=== PATIENT | female | born 1990 | race Two or more races ===

== ENCOUNTER 2020-05-28 06:51 | Day surgery (SDC) | payer MEDICAID ==
[~2020-05-28] VITALS: Ht 162.6 cm; Wt 94.3 kg
--- NOTE | ~2020-05-28 | OP ---
PATIENT NAME: SALUD ABAD MEDICAL RECORD: [id number] :88 LOCATION:D.OPS ADMISSION DATE: SURGEON: CISCO BURNETT MD DATE OF OPERATION: 05/28/2020 PREOPERATIVE DIAGNOSES: 1. Left axillary sebaceous cyst. 2. Morbid obesity with a BMI of 36. POSTOPERATIVE DIAGNOSES: 1. Left axillary sebaceous cyst. 2. Morbid obesity with a BMI of 36. PROCEDURE: Left axillary 1 cm sebaceous cyst excision. SURGEON: Cisco Burnett MD REPORT OF PROCEDURE: The patient's left axilla was prepped and draped in sterile fashion. Right at the crease of the axilla, there was a firm area. An ovoid incision was made overlying this about 1.5 cm to in length. As we went through the subcutaneous tissues, we ended up entering this sebaceous cyst. There was spillage of some sebum that did not appear to be infected. We eventually squeezed out all the material and using electrocautery, we came around the cyst through the normal fatty tissue and was able to excise the entire cystic cavity. The remaining fatty tissue appeared to be normal and any bleeding was treated with electrocautery. We irrigated out the wound with normal saline and then infused this incision with 10 mL of 0.25% Marcaine with epinephrine. The skin incision was closed with subcutaneous 5-0 Monocryl and dressed appropriately. COMPLICATIONS: None. CONDITION: Stable. ANESTHESIA: General endotracheal and local. BLOOD LOSS: Minimal. TRANSINT:[id number] Voice Confirmation ID: [id number] DOCUMENT ID: [id number] CISCO BURNETT MD CC: HÉCTOR HONEYCUTT [id number] DICTATION DATE: 05/28/20 1103 SETUP OPERATOR: [id number]/[id number] [facility] 05/28/20 [id number] [place] [address]
[~2020-05-28 06:51] MED LIST: ALEVE220 MG PO; PROAIR HFA8.5 G1 INH
[2020-05-28 07:15] LABS: BASOPHILS 0.2 % (0-2); EOSINOPHILS 0.7 % (0-7); HEMATOCRIT 42.2 % (36.0-48.0); HEMOGLOBIN 14.4 g/dL (12-16); IMMATURE GRANULOCYTES 0.6 % (0-5); LYMPHOCYTES 32.2 % (15-50); MCHC 34.1 g/dL (31.0-37.0); MCV 87.9 fL (80.0-100.0); MEAN PLATELET VOLUME 10.6 fL (7.4-10.4); MONOCYTES 4.5 % (2-11); NEUTROPHILS 61.8 % (40-80); PLATELET COUNT 243 10x3/uL (130-400); RDW 13.9 % (11.5-14.5)
[2020-05-28 07:43] LABS: CALC OSMOLALITY 277 mosm/kg (275-300); CALCIUM 8.6 mg/dL (8.5-10.1); CARBON DIOXIDE 26.4 mmol/L (21.0-32.0); CHLORIDE - SERUM 104 mmol/L (98-107); CREATININE - SERUM 0.8 mg/dL (0.6-1.3); GLUCOSE 95 mg/dL (74-106); POTASSIUM - SERUM 4.1 mmol/L (3.5-5.1); SODIUM 139 mmol/L (136-145); UREA NITROGEN 13 mg/dL (7-18); eGFR NON AFRICAN AMERICAN 89 mL/min (90-120)
[2020-05-28 07:44] VITALS: BP 105/65; Ht 162.6 cm; Wt 94.3 kg
[2020-05-28] MEDS ORDERED: HYDROCODON-ACE1 EAC7 PO (11:00)
--- NOTE | 2020-05-28 12:13 | NUR ---
1140 IV REMOVED 1145 MEDICATED FOR PAIN AND VOIDED X1 INSTRUCTIONS GIVEN. DRESSING CDI
== END 2020-05-28 12:30 | disposition home or self-care (01) ==
LOC: D.OPS 06:51 → D.PAN 09:30 → D.OPS 09:30
PROVIDERS: ATTEND Surgery
DX: L72.3 Sebaceous cyst (principal); E66.01 Morbid (severe) obesity due to excess calories; Z68.36 Body mass index [BMI] 36.0-36.9, adult